=== PATIENT | male | born 1995 | race Caucasian/White ===

== ENCOUNTER 2016-12-08 19:22 | Emergency (ER) | payer OTHER ==
[2016-12-08 19:42] VITALS: BP 127/77; PULSE 65; RESP 18; TEMP 99.2
--- NOTE | 2016-12-08 20:06 | ED ---
General Adult HPI - General Chief complaint: Neuro Symptoms/Deficit Stated complaint: facial paralysis/pain Time Seen by Provider: 12/08/16 19:46 Source: patient, family, RN notes reviewed, old records reviewed Mode of arrival: ambulatory Limitations: no limitations - History of Present Illness Initial comments: 21-year-old male presents emergency Department chief complaint of 1 week of right-sided facial numbness and pain. Patient reports that there does seem to start with a sharp tooth pain but then it subsided. Patient states he has no dental pain at this time but does notice increased pain over the side of his face and cheek. He states he has never had a symptoms before. Denies any headache. He states that he is unable to fully close his eye. He reports he has a history of Asperger syndrome.Patient denies any recent fever, chills, shortness of breath, chest pain, back pain, abdominal pain, nausea vomiting, numbness or tingling, dysuria or hematuria, constipation or diarrhea, headaches or visual changes, or any other current symptoms - Related Data Previous Rx's Medication Instructions Recorded predniSONE 60 mg PO DAILY 7 Days 12/08/16 valACYclovir HCL [Valacyclovir] 1,000 mg PO TID #21 tab 12/08/16 Allergies Allergy/AdvReac Type Severity Reaction Status Date / Time No Known Allergies Allergy Verified 12/08/16 19:42 Review of Systems ROS Statement: Those systems with pertinent positive or pertinent negative responses have been documented in the HPI. ROS Other: All systems not noted in ROS Statement are negative. Past Medical History Past Medical History: No Reported History History of Any Multi-Drug Resistant Organisms: None Reported Additional Past Surgical History / Comment(s): skin grafs Past Psychological History: ADD/ADHD Smoking Status: Never smoker Past Alcohol Use History: None Reported Past Drug Use History: None Reported General Exam - General Exam Comments Initial Comments: 21-year-old male. No acute distress. Limitations: no limitations General appearance: alert Head exam: Present: atraumatic, normocephalic, normal inspection Eye exam: Present: normal appearance ENT exam: Present: normal exam, mucous membranes moist Neck exam: Present: normal inspection. Absent: tenderness, meningismus, lymphadenopathy Respiratory exam: Present: normal lung sounds bilaterally. Absent: respiratory distress, wheezes, rales, rhonchi, stridor Cardiovascular Exam: Present: regular rate, normal rhythm, normal heart sounds. Absent: systolic murmur, diastolic murmur, rubs, gallop, clicks GI/Abdominal exam: Present: soft, normal bowel sounds. Absent: distended, tenderness, guarding, rebound, rigid Extremities exam: Present: normal inspection, full ROM, normal capillary refill. Absent: tenderness, pedal edema, joint swelling, calf tenderness Back exam: Present: normal inspection Neurological exam: Present: alert, oriented X3, CN II-XII intact Expanded Patient oriented to: Present: person, place, time Speech: Present: fluid speech Cranial nerves: EOM's Intact: Normal, Gag Reflex: Normal, Tongue Deviation: Normal, Facial Sensation: Abnormal Right, Facial Palsy without Forehead Movement : Abnormal Right Cerebellar function: Finger to Nose: Normal Upper motor neuron: Pronator Drift: Normal Sensory exam: Upper Extremity Light Touch: Normal, Lower Extremity Light Touch: Normal Motor strength exam: RUE: 5, LUE: 5, RLE: 5, LLE: 5 Eye Response: (4) open spontaneously Motor Response: (6) obeys commands Verbal Response: (5) oriented Lina Total: 15 Psychiatric exam: Present: normal affect, normal mood Skin exam: Present: warm, dry, intact, normal color. Absent: rash Course Vital Signs 12/08/16 19:38 Temperature 99.2 F Pulse Rate 65 Respiratory 18 Rate Blood Pressure 127/77 O2 Sat by Pulse 98 Oximetry Medical Decision Making - Medical Decision Making 21-year-old male chief complaint of 1 week of facial right-sided facial pain and paralysis. Patient does have complete bleeding neurologically intact except for deficit in cranial nerve #7. Patient has inability to raise the right eyebrow or fully close the right eye. Patient's physical exam findings consistent with Puri's palsy. Patient will be treated with antiviral and prednisone. Patient agrees to follow-up with his primary care provider. Also discussed using artificial tears in the eye. Patient mother and patient understand treatment plan will comply. Return parameters were discussed. Disposition Clinical Impression: Puri's palsy Disposition: HOME SELF-CARE Condition: Good Instructions: Puri Palsy (ED) Additional Instructions: Patient advised to take Motrin or Tylenol for pain. Take the prescriptions as directed. Recommending follow-up with a primary care provider as well. Return to the emergency department if any alarming signs or symptoms occur. Prescriptions: predniSONE 60 mg PO DAILY 7 Days valACYclovir HCL [Valacyclovir] 1,000 mg PO TID #21 tab Referrals: None,Stated [Primary Care Provider] - 1-2 days Irma Holcomb MD [STAFF PHYSICIAN] - 1-2 days Time of Disposition: 20:04
== END 2016-12-08 20:11 | disposition home or self-care (01) ==
LOC: EC 19:22
DX: G51.0 Bell's palsy (principal)
CPT/HCPCS: 99284

== ENCOUNTER 2016-12-11 14:56 | Emergency (ER) | payer OTHER ==
[2016-12-11 15:05] VITALS: BP 150/65; PULSE 66; RESP 18; TEMP 97.9
--- NOTE | 2016-12-11 15:36 | ED ---
General Adult HPI - General Chief complaint: Allergic Reaction Stated complaint: Reaction to medication Time Seen by Provider: 12/11/16 15:09 Source: patient, family, RN notes reviewed, old records reviewed Mode of arrival: ambulatory Limitations: no limitations - History of Present Illness Initial comments: Chief complaint and history of present illness a 21-year-old male who was diagnosed with Puri's palsy of the right side of his face 3 days ago. He was sent home on prednisone 60 mg daily. Take them for the next several days. Took them for the first 2 days and his mother reports that he became very anxious. Punched a wall. Chased the dog with a hammer. As the prednisone where it off the patient's rage would stop. He did not take his medication today. He is back to normal. - Related Data Previous Rx's Medication Instructions Recorded predniSONE 60 mg PO DAILY 7 Days 12/08/16 valACYclovir HCL [Valacyclovir] 1,000 mg PO TID #21 tab 12/08/16 Allergies Allergy/AdvReac Type Severity Reaction Status Date / Time No Known Allergies Allergy Verified 12/11/16 15:05 Review of Systems ROS Statement: Those systems with pertinent positive or pertinent negative responses have been documented in the HPI. Review of systems all systems reviewed he continues to have Puri's palsy right side of his face but he and his mother both report that he's improved over yesterday. Again reminded to tape his eye shut at night when he sleeps. He'll continue with the Valtrex. He is to stop the prednisone. All systems are reviewed. Past medical problems as noted no palsy first diagnosed 3 days ago. Surgery skin grafts to his hands from when he was a baby. Family history great grandmother mother had a stroke. Grandfather had melanoma and prostate cancer in aunt also had melanoma. Patient has no ALLERGIES. Denies smoking denies drinking. ROS Other: All systems not noted in ROS Statement are negative. Past Medical History Past Medical History: No Reported History History of Any Multi-Drug Resistant Organisms: None Reported Additional Past Surgical History / Comment(s): skin grafs Past Psychological History: ADD/ADHD Smoking Status: Never smoker Past Alcohol Use History: None Reported Past Drug Use History: None Reported General Exam - General Exam Comments Initial Comments: General: The patient is awake and alert, in no distress, and does not appear acutely ill. Here because of adverse reaction to prednisone. Vital signs show temperature 97.9 pulse 66 respiratory rate 18 pulse ox 96% room air blood pressure 150/65 Eye: Pupils are equal, round and reactive to light, Puri's palsy affecting the right half of his face.. Ears, nose, mouth and throat: There are moist mucous membranes and no oral lesions. Neck: The neck is supple, there is no tenderness . Cardiovascular: There is a regular rate and rhythm. No murmur, rub or gallop is appreciated. Respiratory: Lungs are clear to auscultation, respirations are non-labored, breath sounds are equal. No wheezes, stridor, rales, or rhonchi. Gastrointestinal: Denies abdominal pain no nausea no vomiting. Back: No complaint of neck pain. Musculoskeletal: Normal ROM, no tenderness, There is no pedal edema. There is no calf tenderness or swelling. Sensation intact. Pulses equal bilaterally 2+. Neurological: Full examination finds positive for Puri's palsy right side of the face. Skin: Skin is warm and dry and no rashes or lesions are noted. Limitations: no limitations Course Vital Signs 12/11/16 15:01 Temperature 97.9 F Pulse Rate 66 Respiratory 18 Rate Blood Pressure 150/65 O2 Sat by Pulse 96 Oximetry Medical Decision Making - Medical Decision Making Medical decision-making. The patient will be told to stop the prednisone. Continue the Valtrex. Will be given the name of the neurologist to follow-up with. Dr. Catarino Hall. Also suggested he follow-up with family physician on-call be Dr. Hill. Disposition Clinical Impression: Steroid side effects, History of Puri's palsy Disposition: HOME SELF-CARE Condition: Fair Instructions: Adverse Drug Reaction (ED), Puri Palsy (ED) Additional Instructions: Stop prednisone use. Continue with Valtrex. Follow-up with family physician and on-call neurologist Referrals: None,Stated [Primary Care Provider] - 1-2 days Jennifer Hall MD [STAFF PHYSICIAN] - 1-2 days Lebron Hill MD [REFERRING] - 1-2 days Time of Disposition: 15:36
[2016-12-11 15:43] LABS: Glucose,Whole Blood 81 mg/dL (75-99)
== END 2016-12-11 15:43 | disposition home or self-care (01) ==
LOC: EC 14:56
DX: F41.9 Anxiety disorder, unspecified (principal); T38.0X5A Adverse effect of glucocorticoids and synthetic analogues, initial encounter; G51.0 Bell's palsy
CPT/HCPCS: 36415; 99283

== ENCOUNTER 2017-08-27 12:12 | Emergency (ER) | payer OTHER ==
[2017-08-27] MEDS ORDERED: ONDANSETRON ODT 4 MG TAB PO STA (12:38)
[2017-08-27 13:18] LABS: Basophils # (A) 0.1 k/uL (0-0.2); Basophils % (A) 1 %; Eosinophils # (A) 0.2 k/uL (0-0.7); Eosinophils % (A) 2 %; HCT 44.1 % (39.0-53.0); HGB 15.3 gm/dL (13.0-17.5); Lymphocytes # (A) 2.9 k/uL (1.0-4.8); Lymphocytes % (A) 29 %; MCH 28.3 pg (25.0-35.0); MCHC 34.8 g/dL (31.0-37.0); MCV 81.2 fL (80.0-100.0); Mean Platelet Volume 8.7; Monocytes # (A) 0.6 k/uL (0-1.0); Monocytes % (A) 6 %; Neutrophils % (A) 60 %; Platelet Count 218 k/uL (150-450); RBC 5.43 m/uL (4.30-5.90); RDW 12.8 % (11.5-15.5); WBC 9.9 k/uL (3.8-10.6)
[2017-08-27 13:22] LABS: Appearance,Urine Clear (Clear); Bilirubin,Urine Negative (Negative); Blood,Urine Negative (Negative); Color,Urine Yellow; Glucose,Urine (UA) Negative (Negative); Ketones,Urine Negative (Negative); Leukocyte Esterase,Urine Negative (Negative); Nitrite,Urine Negative (Negative); Protein,Urine Negative (Negative); Specific Gravity,Urine 1.021 (1.001-1.035); Urobilinogen,Urine <2.0 mg/dL (<2.0)
[2017-08-27 13:35] LABS: ALT 51 U/L (21-72); AST 44 U/L (17-59); Albumin 4.6 g/dL (3.5-5.0); Alkaline Phosphatase 60 U/L (38-126); Amylase 65 U/L (30-110); Anion Gap 16 mmol/L; Blood Urea Nitrogen 10 mg/dL (9-20); Calcium 10.5 mg/dL (8.4-10.2); Carbon Dioxide 27 mmol/L (22-30); Chloride 102 mmol/L (98-107); Glucose 82 mg/dL (74-99); Lipase 83 U/L (23-300); Potassium 4.4 mmol/L (3.5-5.1); Sodium 145 mmol/L (137-145); Total Bilirubin 0.7 mg/dL (0.2-1.3); Total Protein 8.3 g/dL (6.3-8.2)
--- NOTE | 2017-08-27 13:57 | US ---
EXAMINATION TYPE: US gallbladder DATE OF EXAM: 08/27/2017 COMPARISON: NONE CLINICAL HISTORY: Pain. vomiting x 1 month EXAM MEASUREMENTS: Liver Length: 18.5 cm Gallbladder Wall: 0.2 cm CBD: 0.8 cm Right Kidney: 10.0 x 4.2 x 4.4 cm patient has Asperger's syndrome and is extremely ticklish and having a difficult time withstanding the test Pancreas: limited views appear, wnl Liver: difficult to penetrate Gallbladder: multiple shadowing stones seen, no wall thickening or fluid Evidence for sonographic Holman's sign: YES CBD: dilated with no obvious obstruction seen Right Kidney: wnl IMPRESSION: 1. Multiple gallstones with dilated common bile duct measuring 8 mm. Distal CBD stone would be in the differential diagnosis. Correlate clinically. 2. Liver is difficult to penetrate which can be seen with fatty infiltration or hepatocellular diseas e. Correlate clinically.
--- NOTE | 2017-08-27 14:23 | ED ---
Nausea/Vomiting/Diarrhea HPI - General Chief complaint: Nausea/Vomiting/Diarrhea Stated complaint: Vomiting Time Seen by Provider: 08/27/17 12:32 Source: patient Mode of arrival: ambulatory Limitations: no limitations - History of Present Illness Initial comments: This 22-year-old white male presents with a complaint of some nausea and vomiting. He states that it occurs almost daily for the past one month. It seems to be very much related to food intake. He states that it is worse with eating meats but okay when he eats chicken. He has occasional right-sided abdominal pain after eating as well. He denies any previous similar symptoms. He's never had any known problems with his gallbladder or his pancreas. He does take occasional Aleve if needed for general aches and pains but only a couple times a week. He does not drink any alcohol. No fevers or chills. No other complaints or modifying factors. - Related Data Previous Rx's Medication Instructions Recorded Ondansetron [Zofran ODT] 8 mg PO Q8HR PRN #20 tab 08/27/17 traMADol HCl [Ultram] 50 - 100 mg PO Q6H PRN #15 tab 08/27/17 Allergies Allergy/AdvReac Type Severity Reaction Status Date / Time No Known Allergies Allergy Verified 08/27/17 12:26 Review of Systems ROS Statement: Those systems with pertinent positive or pertinent negative responses have been documented in the HPI. ROS Other: All systems not noted in ROS Statement are negative. Past Medical History Past Medical History: No Reported History Additional Past Medical History / Comment(s): aspergers History of Any Multi-Drug Resistant Organisms: None Reported Additional Past Surgical History / Comment(s): skin grafts Past Psychological History: ADD/ADHD Smoking Status: Never smoker Past Alcohol Use History: None Reported Past Drug Use History: None Reported General Exam - General Exam Comments Initial Comments: GENERAL: The patient is well nourished and well hydrated. VITAL SIGNS: Heart rate, blood pressure, respiratory rate reviewed as recorded in nurse's notes. EYES: Pupils are round and reactive. Extraocular movements are intact. No conjunctival / lid redness or swelling. ENT: No external evidence of injury, swelling, or ecchymosis. Airway is patent. Throat is clear. NECK: Nontender. No swelling or evidence of injury. No subcutaneous emphysema. Trachea is midline. No thyroid mass. HEART: Regular rate and rhythm. Good peripheral pulses. LUNGS/CHEST: Breath sounds clear and equal bilaterally. No rales, rhonchi, or wheezes. No ecchymosis, subcutaneous emphysema, or tenderness. ABDOMEN: There is minimal tenderness noted in the right upper abdomen. No palpable masses or organomegaly. No peritoneal signs. No abdominal wall swelling or ecchymosis. EXTREMITIES: No extremity tenderness. Normal muscle tone and function. No thoracolumbar tenderness. NEUROLOGIC: Sensation is grossly intact. Cranial nerve exam reveals face is symmetrical, tongue is midline, speech is clear. SKIN: No abrasions or ecchymosis is noted. No induration or masses noted. PSYCHIATRIC: Alert and oriented. Appropriate behavior and judgment. Limitations: no limitations Course Vital Signs 08/27/17 12:13 Temperature 98.0 F Pulse Rate 74 Respiratory 20 Rate Blood Pressure 124/72 O2 Sat by Pulse 100 Oximetry Medical Decision Making - Medical Decision Making The patient was seen and examined. All diagnostics are reviewed. No pain medications are currently giving as he states that he is not having any abdominal pain currently. He does receive some Zofran for nausea. He is in no distress on recheck. His laboratory and urinalysis are all essentially within normal limits. His ultrasound of the gallbladder does show multiple gallstones. There is no gallbladder wall thickening or pericholecystic fluid. They do note that there may be some slight dilation of the duct. Overall, it appears that he is quite stable for further outpatient workup and treatment. A long discussion was held with patient and family regarding dietary recommendations until he gets in to see the surgeon. Symptomatic treatment will be prescribed in case he does have significant pain or nausea. Return parameters are discussed. - Lab Data Result diagrams: 08/27/17 13:01 08/27/17 13:01 Lab Results 08/27/17 08/27/17 08/27/17 Range/Units 13: 13:01 13:17 WBC 9.9 (3.8-10.6) k/uL RBC 5.43 (4.30-5.90) m/uL Hgb 15.3 (13.0-17.5) gm/dL Hct 44.1 (39.0-53.0) % MCV 81.2 (80.0-100.0) fL MCH 28.3 (25.0-35.0) pg MCHC 34.8 (31.0-37.0) g/dL RDW 12.8 (11.5-15.5) % Plt Count 218 (150-450) k/uL Neutrophils % 60 % Lymphocytes % 29 % Monocytes % 6 % Eosinophils % 2 % Basophils % 1 % Neutrophils # 6.0 (1.3-7.7) k/uL Lymphocytes # 2.9 (1.0-4.8) k/uL Monocytes # 0.6 (0-1.0) k/uL Eosinophils # 0.2 (0-0.7) k/uL Basophils # 0.1 (0-0.2) k/uL Sodium 145 (137-145) mmol/L Potassium 4.4 (3.5-5.1) mmol/L Chloride 102 (98-107) mmol/L Carbon Dioxide 27 (22-30) mmol/L Anion Gap 16 mmol/L BUN 10 (9-20) mg/dL Creatinine 0.80 (0.66-1.25) mg/dL Est GFR (CKD-EPI)AfAm >90 (>60 ml/min/1.73 sqM) Est GFR (CKD-EPI)NonAf >90 (>60 ml/min/1.73 sqM) Glucose 82 (74-99) mg/dL Calcium 10.5 H (8.4-10.2) mg/dL Total Bilirubin 0.7 (0.2-1.3) mg/dL AST 44 (17-59) U/L ALT 51 (21-72) U/L Alkaline Phosphatase 60 (38-126) U/L Total Protein 8.3 H (6.3-8.2) g/dL Albumin 4.6 (3.5-5.0) g/dL Amylase 65 (30-110) U/L Lipase 83 (23-300) U/L Urine Color Yellow Urine Appearance Clear (Clear) Urine pH 5.0 (5.0-8.0) Ur Specific Newcomb 1.021 (1.001-1.035) Urine Protein Negative (Negative) Urine Glucose (UA) Negative (Negative) Urine Ketones Negative (Negative) Urine Blood Negative (Negative) Urine Nitrite Negative (Negative) Urine Bilirubin Negative (Negative) Urine Urobilinogen <2.0 (<2.0) mg/dL Ur Leukocyte Esterase Negative (Negative) Disposition Clinical Impression: Gallstones, Abdominal pain, Nausea and vomiting Disposition: HOME SELF-CARE Condition: Good Instructions: Acute Nausea and Vomiting (ED), Abdominal Pain (ED), Gallstones ( ED), Low Fat Diet (ED) Prescriptions: Ondansetron [Zofran ODT] 8 mg PO Q8HR PRN #20 tab PRN Reason: Nausea traMADol HCl [Ultram] 50 - 100 mg PO Q6H PRN #15 tab PRN Reason: Pain Referrals: None,Stated [Primary Care Provider] - 1-2 days Time of Disposition: 14:22
[2017-08-27 15:11] VITALS: BP 126/68; PULSE 66; RESP 17; TEMP 98.5
== END 2017-08-27 15:15 | disposition home or self-care (01) ==
LOC: EC 12:12
DX: K80.20 Calculus of gallbladder without cholecystitis without obstruction (principal)
CPT/HCPCS: 36415; 76705; 80053; 81003; 82150; 83690; 85025; 99284

== ENCOUNTER 2017-09-03 07:02 | Day surgery (SDC) | payer OTHER ==
[2017-09-02 08:49] VITALS: BMI 32.1
[~2017-09-03 07:02] MED LIST: HEPARIN SODIUM,PORCINE 5,000 UNIT/ML 1 ML VIAL SQ ONE; HYDROmorphone 0.5 MG/0.5 ML SYRINGE IVP PRN; LACTATED RINGERS 1,000 ML IV SCH; MORPHINE SULFATE 4 MG/ML SYRINGE IV PRN; ONDANSETRON 4 MG/2 ML VIAL IVP PRN; ceFAZolin IN SWFI 2 GM/20 ML SYRINGE IVP ONE
[2017-09-03] MEDS ORDERED: LACTATED RINGERS 1,000 ML IV ONE ×2 (07:19→09:58)
[2017-09-03] MEDS ORDERED: DEXAMETHASONE SOD PHOS (MDV) 100 MG/10 ML VIAL IVP ONE (07:43)
--- NOTE | 2017-09-03 08:26 | P.GSHP ---
History of Present Illness H&P Date: 09/03/17 Chief Complaint: Right upper quadrant pain This a 22-year-old male who has had complete return quadrant pain. His recent ultrasound shows evidence of cholelithiasis. He presents today for laparoscopic cholecystectomy. Past Medical History Past Medical History: GERD/Reflux Additional Past Medical History / Comment(s): Wing's.Scare of IVs. Mom states "should be ok with O2 masks". Abdomen very ticklish when touched. Able to verbalize needs. Currently having abdominal pain with nausea and vomiting,. Hx heart murmur,freq urination,UTIs History of Any Multi-Drug Resistant Organisms: None Reported Additional Past Surgical History / Comment(s): skin grafts addy hands Past Anesthesia/Blood Transfusion Reactions: No Reported Reaction Smoking Status: Never smoker - Past Family History Mother Family Medical History: No Reported History Medications and Allergies Home Medications Medication Instructions Recorded Confirmed Type Ondansetron [Zofran ODT] 8 mg PO Q8HR PRN #20 tab 08/27/17 09/02/17 Rx traMADol HCl [Ultram] 50 - 100 mg PO Q6H PRN #15 tab 08/27/17 09/02/17 Rx Allergies Allergy/AdvReac Type Severity Reaction Status Date / Time No Known Allergies Allergy Verified 09/02/17 08:36 Surgical - Exam Vital Signs Temp Pulse Resp BP Pulse Ox 98.1 F 82 18 122/72 98 09/03/17 07:16 09/03/17 07:16 09/03/17 07:16 09/03/17 07:16 09/03/17 07:16 - General well developed, no distress - Eyes PERRL - ENT normal pinna - Neck no masses - Respiratory normal expansion - Cardiovascular Rhythm: regular - Abdomen Abdomen: soft, non tender Assessment and Plan Assessment: Cholelithiasis Right quadrant pain We'll perform laparoscopic cholecystectomy.
[2017-09-03] MEDS ORDERED: PROPOFOL 10 MG/ML 20 ML VIAL IV ONE (08:50)
[2017-09-03] MEDS ORDERED: LIDOCAINE 1% INJ 10MG/ML (20 ML MDV) ONE (08:50)
[2017-09-03] MEDS ORDERED: fentaNYL (PF) 50 MCG/ML 2 ML AMP ONE (08:50)
[2017-09-03] MEDS ORDERED: BUPIVACAINE (PF) 0.25% 30 ML VIAL SQ ONE (09:09)
--- NOTE | 2017-09-03 09:45 | P.OP ---
Date of Procedure: 09/03/17 Preoperative Diagnosis: Cholecystitis Cholelithiasis Postoperative Diagnosis: Cholecystitis Cholelithiasis Procedure(s) Performed: Laparoscopic cholecystectomy Anesthesia: BINTA Surgeon: Odilon Gotti Estimated Blood Loss (ml): 5 Pathology: other (Gallbladder) Condition: stable Disposition: PACU Description of Procedure: The patient was placed on the operating table. The patient received a general endotracheal tube anesthesia. The patients abdomen was prepped and draped in the usual sterile fashion. Through an infraumbilical stab incision, the fascia of the anterior abdominal wall was grasped with a pair of Kochers and then the Veress needle was placed in the peritoneal cavity. Position of the Veress needle was confirmed with positive drop test. The abdomen was then insufflated. After adequate insufflation, the 10 mm trocar was placed in the peritoneal cavity. Following this the laparoscope was placed in the peritoneal cavity. The patient was placed in the head-up, right side up position and then a 5 mm trocar was placed in the right lateral and right subcostal position under direct visualization. A 8 mm trocar was placed in the epigastric position. The gallbladder was grasped in the fundus and infundibulum. Traction on the gallbladder was placed in the lateral and the cephalad positions. The triangle of Calot was visualized.. The cystic duct was bluntly dissected until the union of the cystic duct and common bile duct was seen. The cystic duct was then divided and sealed with the Harmonic scissors. A PDS Endoloop was then placed throughout the cystic duct stump. The cystic artery divided and sealed with the Harmonic scissors. The gallbladder was then removed from the liver bed using Harmonic scissors. The gallbladder was then extracted through the epigastric port site. Operative field was checked for any bleeding spots and Harmonic scissors was used to coagulate the liver bed. The abdomen was irrigated. The trocars were removed. The skin was closed using interrupted 3-0 Vicryl suture. Dermabond dressing were applied. The patient tolerated the procedure well.
[2017-09-03] MEDS ORDERED: MORPHINE SULFATE 4MG/4ML SYRG IVP ONE (10:09)
[2017-09-03 10:16] VITALS: TEMP 96.9
[2017-09-03] MEDS ORDERED: DEXAMETHASONE SOD PHOS (MDV) 100 MG/10 ML VIAL IV ONE (11:00)
[2017-09-03] MEDS ORDERED: fentaNYL (PF) 50 MCG/ML 2 ML AMP IV ONE (11:00)
[2017-09-03 11:06] VITALS: RESP 16
[2017-09-03] MEDS ORDERED: diphenhydrAMINE 50 MG/ML 1 ML VIAL IVP ONE (11:18)
[2017-09-03 12:08] VITALS: BP 104/68; PULSE 68
[2017-09-03] MEDS ORDERED: HYDROcodone/APAP 7.5-325MG 1 EACH TAB PO ONE (12:52)
== END 2017-09-03 13:32 | disposition home or self-care (01) ==
LOC: OR 07:02
PROVIDERS: ATTEND Surgery
DX: K80.10 Calculus of gallbladder with chronic cholecystitis without obstruction (principal); K21.9 Gastro-esophageal reflux disease without esophagitis; F84.5 Asperger's syndrome; Z87.440 Personal history of urinary (tract) infections
CPT/HCPCS: 88304; 47562; J1200; J1644; J2405; J2001; J3010; J1100; J2704; J0690; J2270